=== PATIENT | male | born 2000 | race Caucasian/White ===

== ENCOUNTER 2020-04-22 05:18 | Inpatient (IN) | payer BC, OTHER ==
[2020-04-22 05:59] LABS: Hemoglobin 16.4 g/dL (14.0-18.0); Mean Corpuscular HGB CONC 35.3 g/dL (32.0-36.0); Mean Corpuscular Hemoglobin 31.7 pg (27.0-31.0); Mean Corpuscular Volume 89.7 fL (78.0-98.0); Mean Platelet Volume 8.9 fL (7.4-10.4); Platelet Count 237 thou/uL (130-400); RBC Distribution Width 11.9 % (11.5-14.5); Red Blood Cell (RBC) Count 5.17 mill/uL (4.70-6.10); White Blood Cell (WBC) Count 21.9 thou/uL (4.8-10.8)
[2020-04-22] MEDS ORDERED: Fentanyl 100 MCG/2 ML VIAL ONE (06:02)
[2020-04-22 06:15] LABS: ALT (SGPT) 449 U/L (8-55); AST (SGOT) 519 U/L (5-34); Albumin 4.2 g/dL (3.5-5.0); Alkaline Phosphatase 53 U/L (40-110); Anion Gap 18 mmol/L (10-20); BUN (Urea Nitrogen) 12 mg/dL (8.9-20.6); Bilirubin, Total 0.6 mg/dL (0.2-1.2); Calc. Creatinine Clearance 0 mL/min (70-130); Calcium 8.4 mg/dL (7.8-10.44); Carbon Dioxide 20 mmol/L (22-29); Chloride 104 mmol/L (98-107); Globulin 3.6 g/dL (2.4-3.5); Glucose 130 mg/dL (70-105); Potassium 3.4 mmol/L (3.5-5.1); Protein, Total 7.8 g/dL (6.0-8.3); Sodium 139 mmol/L (136-145)
[2020-04-22 06:16] LABS: Acetaminophen Less than 6.0 mcg/mL (10.0-30.0); Alcohol 100 mg/dL (Less than 10); Salicylate Less than 8.0 mg/dL (15.0-30.0)
[2020-04-22 06:18] LABS: Band 20 % (5-11); Lymphocytes 23 % (21-51); MDiff Complete? YES; Metamyelocyte 1 % (0-0); Monocytes 3 % (0-10); Neutrophil 53 % (42-75)
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
--- NOTE | 2020-04-22 08:19 | CT ---
EXAM: CT angiogram of the neck including 3-D rendering: HISTORY: Left C2 fracture COMPARISON: None FINDINGS: There is adequate opacification of the extracranial arterial tree. No evidence for vertebral artery narrowing or dissection as it passes through the left C2 foramen wit h adjacent fractures. The origins of the right and left carotid and vertebral arteries demonstrate no significant stenosis. Right common, internal, and external carotid arteries:No evidence for significant stenosis or occlusi ve disease. Left common, internal, and external carotid arteries:No significant stenosis or occlusive disease. Right and left vertebral arteries and basilar artery:No significant stenosis or occlusion. Soft tissue neck demonstrates no evidence for significant adenopathy, mass, or abnormal fluid collect ion. All stenosis measurements use Nascet Criteria. IMPRESSION: No evidence for left vertebral artery dissection as it passes through the left C2 foramen with adjace nt fractures. No significant carotid, vertebral, or basilar artery stenosis or occlusive disease or other significa nt acute process.
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
[2020-04-22 08:27] LABS: Magnesium 1.9 mg/dL (1.6-2.6); Phosphorus 4.4 mg/dL (2.3-4.7)
[2020-04-22] MEDS ORDERED: Dextrose 5% in Water 1,000 ML IV PRN (08:34)
[2020-04-22] MEDS ORDERED: traMADol HCl 50 MG TAB PO PRN (08:34)
[2020-04-22] MEDS ORDERED: hydrALAZINE 20 MG/ML VIAL SLOW IVP PRN (08:34)
[2020-04-22] MEDS ORDERED: Ondansetron ODT 4 MG TAB PO PRN (08:34)
[2020-04-22] MEDS ORDERED: Morphine 2 MG/ML VIAL SLOW IVP PRN (08:34)
[2020-04-22] MEDS ORDERED: Dextrose 50% Abboject 50 ML SYRINGE SLOW IVP PRN (08:34)
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
[2020-04-22] MEDS: Sodium Chloride 0.9% 1,000 ML IV SCH ×2 (09:35→17:45)
[2020-04-22] MEDS: Acetaminophen 325 MG TAB PO SCH ×3 (09:35→21:03)
[2020-04-22] MEDS: Famotidine 20 MG TAB PO SCH ×2 (09:36→21:03)
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
[2020-04-22] MEDS ORDERED: Potassium Chloride 20 MEQ TAB PO SCH (11:00)
[2020-04-22] MEDS ORDERED: Iopamidol-370 76% 500 ML 1 ML ONE ×2 (11:40→11:41)
[2020-04-22] MEDS: traMADol HCl 50 MG TAB PO PRN (11:44)
[2020-04-22] MEDS: Cyclobenzaprine 10 MG TAB PO PRN (11:44)
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
[2020-04-22 12:32] LABS: Clarity Hazy (Clear)
[2020-04-22 12:33] LABS: Bilirubin Unable to Interpret (Negative); Glucose, Urine (Dipstick) Unable to Interpret mg/dL (Negative); Ketone, Urine Unable to Interpret mg/dL (Negative); Leukocyte Unable to Interpret Leu/uL (Negative); Nitrite Unable to Interpret (Negative); Protein, Urine (Dipstick) Unable to Interpret mg/dL (Neg-Trace); Specific Gravity, Urine 1.059 (1.002-1.036); Urobilinogen UNABLE TO INTERPRET mg/dL (Less than 2)
[2020-04-22 12:34] LABS: Bacteria/HPF 2+ HPF (None Seen); Blood, Urine Unable to Interpret (Negative); RBC/HPF Greater than 50 HPF (0-3); Squamous Epithelial None Seen HPF (0-3)
[2020-04-22 12:52] LABS: Amphetamine Not Detected (NotDetected); Barbiturates Screen Not Detected (NotDetected); Benzodiazepine Screen Not Detected (NotDetected); Cocaine Metabolite Screen Not Detected (NotDetected); Medtox Control Line Valid? VALID (VALID); Medtox Reader # READER 4; Methadone Not Detected (NotDetected); Methamphetamine Not Detected (NotDetected); Opiate Screen Not Detected (NotDetected); Oxycodone Screen Not Detected (NotDetected); Phencyclidine (PCP) Not Detected (NotDetected); THC/Cannabinoid Screen Not Detected (NotDetected); Tricyclic Screen Not Detected (NotDetected)
[2020-04-22 13:44] VITALS: BMI 29.7
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
[2020-04-22 20:12] LABS: #Lymphocytes 1.7 thou/uL (1.20-3.40); #Monocytes 1.5 thou/uL (0.11-0.59); #Neutrophils 12.1 thou/uL (1.40-6.50); %Basophils 0.1 % (0.0-1.0); %Eosinophils 0.1 % (0.0-10.0); %Lymphocytes 11.2 % (21.0-51.0); %Monocytes 9.6 % (0.0-10.0); Hemoglobin 15.4 g/dL (14.0-18.0); Mean Corpuscular HGB CONC 33.7 g/dL (32.0-36.0); Mean Corpuscular Hemoglobin 31.7 pg (27.0-31.0); Mean Corpuscular Volume 93.9 fL (78.0-98.0); Mean Platelet Volume 8.8 fL (7.4-10.4); Platelet Count 189 thou/uL (130-400); RBC Distribution Width 12.2 % (11.5-14.5); Red Blood Cell (RBC) Count 4.87 mill/uL (4.70-6.10); White Blood Cell (WBC) Count 15.3 thou/uL (4.8-10.8)
[2020-04-22 20:26] LABS: Lactic Acid 2.6 mmol/L (0.5-2.2)
[2020-04-22 20:31] LABS: Anion Gap 17 mmol/L (10-20); BUN (Urea Nitrogen) 14 mg/dL (8.9-20.6); CK (CPK) 2814 U/L (30-200); Calc. Creatinine Clearance 130 mL/min (70-130); Calcium 8.7 mg/dL (7.8-10.44); Carbon Dioxide 22 mmol/L (22-29); Chloride 106 mmol/L (98-107); Glucose 101 mg/dL (70-105); Phosphorus 4.3 mg/dL (2.3-4.7); Potassium 4.5 mmol/L (3.5-5.1); Sodium 140 mmol/L (136-145)
[2020-04-22 22:33] LABS: SARS-CoV-2 MS2 Positive; SARS-CoV-2 N Gene Negative; SARS-CoV-2 S Gene Negative; SARS-CoV-2 by NAA Not Detected (NotDetected); SARS-CoV-2 orf1ab Negative
[2020-04-23] MEDS: traMADol HCl 50 MG TAB PO PRN (00:09)
[2020-04-23] MEDS: Cyclobenzaprine 10 MG TAB PO PRN ×2 (00:09→20:32)
[2020-04-23] MEDS: Sodium Chloride 0.9% 1,000 ML IV SCH ×3 (02:36→21:58)
[2020-04-23] MEDS: Acetaminophen 325 MG TAB PO SCH ×4 (02:43→20:32)
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
[2020-04-23 05:18] LABS: #Lymphocytes 1.3 thou/uL (1.20-3.40); %Basophils 0.1 % (0.0-1.0); %Eosinophils 0.3 % (0.0-10.0); %Lymphocytes 12.8 % (21.0-51.0); %Monocytes 9.3 % (0.0-10.0); %Neutrophils 77.5 % (42.0-75.0); Hemoglobin 13.9 g/dL (14.0-18.0); Mean Corpuscular Hemoglobin 32.2 pg (27.0-31.0); Mean Corpuscular Volume 94.5 fL (78.0-98.0); Platelet Count 140 thou/uL (130-400); RBC Distribution Width 12.1 % (11.5-14.5); Red Blood Cell (RBC) Count 4.31 mill/uL (4.70-6.10); White Blood Cell (WBC) Count 10.3 thou/uL (4.8-10.8)
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
[2020-04-23 06:07] LABS: Anion Gap 12 mmol/L (10-20); BUN (Urea Nitrogen) 14 mg/dL (8.9-20.6); Calc. Creatinine Clearance 151 mL/min (70-130); Carbon Dioxide 23 mmol/L (22-29); Chloride 108 mmol/L (98-107); Potassium 4.3 mmol/L (3.5-5.1); Sodium 139 mmol/L (136-145)
[2020-04-23 06:08] LABS: Calcium 8.4 mg/dL (7.8-10.44); Glucose 106 mg/dL (70-105); Magnesium 1.9 mg/dL (1.6-2.6); Phosphorus 2.9 mg/dL (2.3-4.7)
--- NOTE | 2020-04-23 07:33 | PRG ---
DATE OF SERVICE: 04/23/2020 I saw Yoan Jones in his hospital room this morning. He has his cervical collar on and he is lying flat in bed. He is less intoxicated, more ready to discuss his care this morning. Overnight, I do not see any fevers recorded. Blood pressures have been in the 140s. His heart rate is in the 100s to 110s. On examination, there is no neurological deficit. I spent quite some time talking to Mr. Jones about his C2 hangman fracture. On one side, the hangman fracture goes through the facet complex and there is a modicum of stability there. On the other side, it is directly through the pars. However, the alignment is perfect. He is young and healthy. We may be able to treat this with external cervical orthosis. His mother worries about his reliability wearing it, but he attests to the fact that he will be able to keep it on for two months continuously. There will be a collar for showers that he can exchange when he is horizontal. He would like to avoid surgery if possible and we may be able to do so. Job ID: [id number]
[2020-04-23] MEDS ORDERED: PHOS-NAK 1 PKT PACK PO SCH (08:15)
--- NOTE | 2020-04-23 08:32 | RAD ---
PORTABLE CHEST: Date: 04/23/2020 HISTORY: Pulmonary contusion. COMPARISON: 04/22/2020. FINDINGS/IMPRESSION: The hazy infiltrates in the upper lung norris is less pronounced today. No new infiltrate or consolid ation. No acute interval change. POS: AGW
[2020-04-23] MEDS: Famotidine 20 MG TAB PO SCH ×2 (08:45→20:32)
[2020-04-23] MEDS ORDERED: FLU VACC QS2020-21(6MOS UP)/PF 60 MCG/0.5 ML SYRINGE IM ONE (09:00)
[2020-04-23] MEDS ORDERED: traMADol HCl 50 MG TAB PO PRN (10:14)
[2020-04-23] MEDS ORDERED: Ketorolac Tromethamine 30 MG/ML VIAL IVP SCH (10:15)
[2020-04-23] MEDS: traMADol HCl 50 MG TAB PO SCH ×3 (14:47→23:31)
[2020-04-23] MEDS: Ibuprofen 200 MG TAB PO SCH ×2 (14:47→22:41)
[2020-04-23] MEDS: Folic Acid 1 MG TAB PO SCH (14:47)
[2020-04-23] MEDS: Thiamine 100 MG TAB PO SCH (14:48)
[2020-04-23] MEDS: Multivit, Therapeutic 1 TAB PO SCH (14:48)
[2020-04-23] MEDS: Pregabalin 50 MG CAP PO SCH (20:32)
--- NOTE | 2020-04-24 00:20 | PRG ---
DATE OF SERVICE: SUBJECTIVE: Patient was seen during evening rounds, resting comfortably. The patient's nurse reports that he is leaning more toward conservative treatment with a collar at this time. The patient's urine remains dark. The patient continues to be on maintenance IV fluids normal saline at 120 an hour. The patient is tolerating a regular diet. The patient's pain has been controlled. The patient's acetabular fracture will be managed non-operatively. OBJECTIVE: Patient's vital signs are stable and he remains afebrile. PLAN: Increase activity per Physical and Occupational Therapy. Continue pain control and supportive care. Continue aggressive pulmonary toilet with the use of incentive spirometer every hour while awake. Job ID: [id number]
[2020-04-24] MEDS: Acetaminophen 325 MG TAB PO SCH ×5 (03:28→23:47)
[2020-04-24] MEDS: Sodium Chloride 0.9% 1,000 ML IV SCH (03:37)
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
[2020-04-24] MEDS: traMADol HCl 50 MG TAB PO SCH ×4 (05:51→23:47)
[2020-04-24] MEDS: Ibuprofen 200 MG TAB PO SCH ×3 (05:51→22:35)
[2020-04-24 06:39] LABS: #Basophils 0.1 thou/uL (0.0-0.2); #Eosinphils 0.2 thou/uL (0.0-0.7); #Lymphocytes 1.9 thou/uL (1.20-3.40); #Monocytes 0.8 thou/uL (0.11-0.59); #Neutrophils 7.9 thou/uL (1.40-6.50); %Basophils 0.5 % (0.0-1.0); %Eosinophils 1.9 % (0.0-10.0); %Lymphocytes 17.5 % (21.0-51.0); %Monocytes 7.1 % (0.0-10.0); %Neutrophils 73.1 % (42.0-75.0); Hemoglobin 13.9 g/dL (14.0-18.0); Mean Corpuscular HGB CONC 33.9 g/dL (32.0-36.0); Mean Corpuscular Hemoglobin 31.6 pg (27.0-31.0); Mean Corpuscular Volume 93.1 fL (78.0-98.0); Platelet Count 135 thou/uL (130-400); RBC Distribution Width 11.9 % (11.5-14.5); White Blood Cell (WBC) Count 10.8 thou/uL (4.8-10.8)
[2020-04-24 06:51] LABS: Anion Gap 13 mmol/L (10-20); BUN (Urea Nitrogen) 14 mg/dL (8.9-20.6); CK (CPK) 1291 U/L (30-200); Calc. Creatinine Clearance 171 mL/min (70-130); Calcium 8.6 mg/dL (7.8-10.44); Carbon Dioxide 24 mmol/L (22-29); Chloride 107 mmol/L (98-107); Glucose 73 mg/dL (70-105); Magnesium 1.9 mg/dL (1.6-2.6); Phosphorus 2.9 mg/dL (2.3-4.7); Potassium 4.2 mmol/L (3.5-5.1); Sodium 140 mmol/L (136-145)
--- NOTE | 2020-04-24 07:25 | PRG ---
DATE OF SERVICE: I saw Mr. Jones and his mother in their hospital room this morning. Mr. Jones woke up as I entered the room. He has no complaints, but tells me he decided to go with collar treatment for now and try to avoid surgical intervention. He promises to be diligent about collar use. Among the electronically recorded vital signs, I see no fevers. Blood pressures have been in the 130s to 150s. On examination, Mr. Jones wakes, he moves all the extremities. He is beginning to be more accepting of his injury and tolerant of his care providers. Mr. Jones needs a [place] collar that fits him well. The two collars can be exchanged when he is completely horizontal in bed and his head is immobilized by another person. The back of the collar can be pushed into the bed and removed once the front of the collar has been opened and taken out of the way. The reverse can happen with the second collar. When the [place] collar is in place, he can sit up and go shower, he can dry off, return to bed, assume the horizontal position, and go through the reverse process to put the [place] J collar back on. Our office will arrange x-rays in one week and three weeks after that as well as at the end of the two months. We will make sure that the fracture fragments are not displacing relative to each other. Job ID: [id number] [facility]
[2020-04-24] MEDS: Multivit, Therapeutic 1 TAB PO SCH (08:59)
[2020-04-24] MEDS: Folic Acid 1 MG TAB PO SCH (08:59)
[2020-04-24] MEDS: Thiamine 100 MG TAB PO SCH (08:59)
[2020-04-24] MEDS: Famotidine 20 MG TAB PO SCH ×2 (08:59→20:18)
[2020-04-24] MEDS: Pregabalin 50 MG CAP PO SCH (08:59)
[2020-04-24] MEDS: Gabapentin 100 MG CAP PO SCH ×2 (14:46→20:18)
[2020-04-24] MEDS: Ondansetron PF 4 MG/2 ML Vial IVP PRN (20:22)
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
[2020-04-25] MEDS: Ibuprofen 200 MG TAB PO SCH ×3 (05:22→23:00)
[2020-04-25] MEDS: traMADol HCl 50 MG TAB PO SCH ×3 (05:26→18:12)
[2020-04-25] MEDS: Ondansetron PF 4 MG/2 ML Vial IVP PRN ×2 (06:29→17:55)
[2020-04-25] MEDS ORDERED: Sodium Chloride 0.9% 250 ML 250 ML IVPB SCH (07:00)
[2020-04-25] MEDS ORDERED: Promethazine HCl 25 MG/ML VIAL IM SCH (07:00)
--- NOTE | 2020-04-25 08:03 | PRG ---
DATE OF SERVICE: I saw Yoan Jones in his hospital room this morning. His mother is in the room with him. They do not report any events overnight other than increase in his nausea and vomiting. Overnight, the maximum temperature I see recorded is 98.8 degrees Fahrenheit. Blood pressures have been in the 140s to 160s, which are slightly elevated for a person of his age. Mr. Jones wakes, he moves all extremities well. There is no new neurological deficit. His cervical collar is in place. Before discharge home, Mr. Jones needs to be safe for his activities of daily living and have his nausea controlled. I think this is a medication effect, honestly. He and his mother know to use the [place] collar for showers and the [place] J collar the rest of the day. Collars need to be worn 24 hours a day, 7 days a week for 2 months as the fractures heal. We will arrange followup imaging. Job ID: [id number]
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
[2020-04-25] MEDS: Acetaminophen 325 MG TAB PO SCH ×3 (09:00→20:51)
[2020-04-25] MEDS: Famotidine 20 MG TAB PO SCH ×2 (09:24→20:50)
[2020-04-25] MEDS: Multivit, Therapeutic 1 TAB PO SCH (09:24)
[2020-04-25] MEDS: Gabapentin 100 MG CAP PO SCH ×3 (09:24→20:52)
[2020-04-25] MEDS: Scopolamine 1.5 mg/72 hour Patch TD SCH (09:25)
[2020-04-25] MEDS: Folic Acid 1 MG TAB PO SCH (09:25)
[2020-04-25] MEDS: Thiamine 100 MG TAB PO SCH (09:25)
[2020-04-25 10:34] LABS: #Eosinphils 0.1 thou/uL (0.0-0.7); #Lymphocytes 0.9 thou/uL (1.20-3.40); #Monocytes 0.6 thou/uL (0.11-0.59); #Neutrophils 9.7 thou/uL (1.40-6.50); %Basophils 0.4 % (0.0-1.0); %Eosinophils 0.5 % (0.0-10.0); %Lymphocytes 7.5 % (21.0-51.0); %Monocytes 5.7 % (0.0-10.0); Hemoglobin 14.1 g/dL (14.0-18.0); Mean Corpuscular Hemoglobin 31.2 pg (27.0-31.0); Mean Corpuscular Volume 91.7 fL (78.0-98.0); Mean Platelet Volume 9.4 fL (7.4-10.4); Platelet Count 149 thou/uL (130-400); RBC Distribution Width 11.7 % (11.5-14.5); Red Blood Cell (RBC) Count 4.51 mill/uL (4.70-6.10); White Blood Cell (WBC) Count 11.3 thou/uL (4.8-10.8)
[2020-04-25 11:25] LABS: Anion Gap 17 mmol/L (10-20); BUN (Urea Nitrogen) 15 mg/dL (8.9-20.6); Calc. Creatinine Clearance 98 mL/min (70-130); Carbon Dioxide 23 mmol/L (22-29); Chloride 104 mmol/L (98-107); Glucose 102 mg/dL (70-105); Phosphorus 3.8 mg/dL (2.3-4.7); Potassium 4.7 mmol/L (3.5-5.1); Sodium 139 mmol/L (136-145)
[2020-04-25] MEDS ORDERED: Lactated Ringer's 1,000 ML IV SCH (12:30)
[2020-04-26] MEDS: traMADol HCl 50 MG TAB PO SCH ×5 (00:33→23:55)
[2020-04-26] MEDS: Acetaminophen 325 MG TAB PO SCH ×4 (03:02→20:22)
[2020-04-26] MEDS: Ibuprofen 200 MG TAB PO SCH ×3 (05:09→20:23)
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
[2020-04-26 06:44] LABS: #Basophils 0.1 thou/uL (0.0-0.2); #Eosinphils 0.3 thou/uL (0.0-0.7); #Lymphocytes 1.6 thou/uL (1.20-3.40); #Monocytes 0.8 thou/uL (0.11-0.59); #Neutrophils 6.1 thou/uL (1.40-6.50); %Basophils 0.8 % (0.0-1.0); %Lymphocytes 18.4 % (21.0-51.0); %Neutrophils 68.8 % (42.0-75.0); Hemoglobin 13.5 g/dL (14.0-18.0); Mean Corpuscular HGB CONC 34.4 g/dL (32.0-36.0); Mean Corpuscular Hemoglobin 31.8 pg (27.0-31.0); Mean Corpuscular Volume 92.4 fL (78.0-98.0); Mean Platelet Volume 8.9 fL (7.4-10.4); Platelet Count 142 thou/uL (130-400); RBC Distribution Width 11.8 % (11.5-14.5); Red Blood Cell (RBC) Count 4.26 mill/uL (4.70-6.10); White Blood Cell (WBC) Count 8.8 thou/uL (4.8-10.8)
[2020-04-26 07:10] LABS: Anion Gap 15 mmol/L (10-20); BUN (Urea Nitrogen) 10 mg/dL (8.9-20.6); Calc. Creatinine Clearance 171 mL/min (70-130); Calcium 9.1 mg/dL (7.8-10.44); Carbon Dioxide 25 mmol/L (22-29); Chloride 106 mmol/L (98-107); Glucose 79 mg/dL (70-105); Magnesium 1.8 mg/dL (1.6-2.6); Phosphorus 3.8 mg/dL (2.3-4.7); Potassium 3.9 mmol/L (3.5-5.1); Sodium 142 mmol/L (136-145)
--- NOTE | 2020-04-26 07:25 | PRG ---
DATE OF SERVICE: 04/26/2020 I saw Mr. Jones in his hospital room this morning. His mother is at the bedside. He had a reasonably comfortable night as he is pleased with his progress since yesterday. He walked in the room yesterday with some assistance, but did not get in the hallways. I do not see any fevers recorded yesterday or today. Blood pressures have been high for a 19-year-old in the 140 to 150 range. Mr. Jones wakes, he talks, he moves all his extremities. The collar is well positioned. He does not seem to be in much distress. Our office will arrange a followup x-ray in 2 weeks. Three weeks after that at the end of the 2 months of collar use, we will ensure that the C2 fracture is well aligned. He is to be safe for activities of daily living prior to discharge. Job ID: [id number]
[2020-04-26] MEDS ORDERED: Magnesium Citrate 300 ML BOT PO PRN (09:42)
[2020-04-26] MEDS: Ondansetron PF 4 MG/2 ML Vial IVP PRN (09:49)
[2020-04-26] MEDS: Gabapentin 100 MG CAP PO SCH ×3 (14:09→20:22)
[2020-04-26] MEDS: Famotidine 20 MG TAB PO SCH ×2 (14:10→20:22)
[2020-04-26] MEDS: Multivit, Therapeutic 1 TAB PO SCH (14:10)
[2020-04-26] MEDS: Thiamine 100 MG TAB PO SCH (14:10)
[2020-04-26] MEDS: Folic Acid 1 MG TAB PO SCH (14:10)
[2020-04-26] MEDS: Polyethylene Glycol 3350 17 GM Packet PO SCH (14:11)
[2020-04-26] MEDS: Senokot S 8.6-50 MG TAB PO SCH ×2 (14:12→20:22)
[2020-04-27] MEDS: Acetaminophen 325 MG TAB PO SCH ×5 (05:08→20:26)
[2020-04-27] MEDS: Ibuprofen 200 MG TAB PO SCH ×3 (05:49→20:28)
[2020-04-27] MEDS: traMADol HCl 50 MG TAB PO SCH ×3 (05:50→16:56)
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
[2020-04-27] MEDS: Polyethylene Glycol 3350 17 GM Packet PO SCH (08:50)
[2020-04-27] MEDS: Thiamine 100 MG TAB PO SCH (08:50)
[2020-04-27] MEDS: Famotidine 20 MG TAB PO SCH ×2 (08:50→20:26)
[2020-04-27] MEDS: Senokot S 8.6-50 MG TAB PO SCH ×2 (08:50→20:28)
[2020-04-27] MEDS: Multivit, Therapeutic 1 TAB PO SCH (08:50)
[2020-04-27] MEDS: Folic Acid 1 MG TAB PO SCH (08:50)
[2020-04-27] MEDS: Gabapentin 100 MG CAP PO SCH ×3 (08:50→20:27)
[2020-04-27] MEDS: Enoxaparin Sodium 30 MG/0.3 ML SYRINGE SC SCH ×2 (10:12→20:26)
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
[2020-04-28] MEDS: traMADol HCl 50 MG TAB PO SCH ×3 (00:15→12:15)
[2020-04-28] MEDS: Acetaminophen 325 MG TAB PO SCH ×3 (04:25→15:22)
[2020-04-28] MEDS: Ibuprofen 200 MG TAB PO SCH ×2 (05:51→15:22)
[2020-04-28 09:46] VITALS: TEMP 98.2
[2020-04-28] MEDS: Scopolamine 1.5 mg/72 hour Patch TD SCH (09:46)
[2020-04-28] MEDS: Gabapentin 100 MG CAP PO SCH ×2 (09:47→15:23)
[2020-04-28] MEDS: Enoxaparin Sodium 30 MG/0.3 ML SYRINGE SC SCH (09:47)
[2020-04-28] MEDS: Multivit, Therapeutic 1 TAB PO SCH (09:47)
[2020-04-28] MEDS: Famotidine 20 MG TAB PO SCH (09:47)
[2020-04-28] MEDS: Thiamine 100 MG TAB PO SCH (09:47)
[2020-04-28] MEDS: Senokot S 8.6-50 MG TAB PO SCH (09:47)
[2020-04-28] MEDS: Folic Acid 1 MG TAB PO SCH (09:47)
[2020-04-28] MEDS: Polyethylene Glycol 3350 17 GM Packet PO SCH (09:48)
[2020-04-28 13:30] VITALS: BP 154/90
== END 2020-04-28 17:42 | DRG 964 ==
LOC: ERS 05:18 → SURG A 06:11
PROVIDERS: ADMIT Surgery; ATTEND Surgery
DX: S27.322A Contusion of lung, bilateral, initial encounter (principal); S32.432A Displaced fracture of anterior column [iliopubic] of left acetabulum, initial encounter for closed fracture; S06.0X9A Concussion with loss of consciousness of unspecified duration, initial encounter; S36.029A Unspecified contusion of spleen, initial encounter; S12.190A Other displaced fracture of second cervical vertebra, initial encounter for closed fracture; S32.019A Unspecified fracture of first lumbar vertebra, initial encounter for closed fracture; S32.039A Unspecified fracture of third lumbar vertebra, initial encounter for closed fracture; S32.049A Unspecified fracture of fourth lumbar vertebra, initial encounter for closed fracture; S32.059A Unspecified fracture of fifth lumbar vertebra, initial encounter for closed fracture; S22.32XA Fracture of one rib, left side, initial encounter for closed fracture; S36.112A Contusion of liver, initial encounter; N17.9 Acute kidney failure, unspecified; S37.012A Minor contusion of left kidney, initial encounter; Z20.828 Contact with and (suspected) exposure to other viral communicable diseases; T79.6XXA Traumatic ischemia of muscle, initial encounter; R40.2411 Glasgow coma scale score 13-15, in the field [EMT or ambulance]; F10.129 Alcohol abuse with intoxication, unspecified; Y90.5 Blood alcohol level of 100-119 mg/100 ml; F07.81 Postconcussional syndrome; V89.2XXA Person injured in unspecified motor-vehicle accident, traffic, initial encounter
CPT/HCPCS: 36415; 36416; 70450; 70498; 71045; 71260; 72125; 74177; 80048; 80053; 80306; 80307; 81003; 81015; 82550; 83605; 83735; 84100; 85025; 87635; 90471; 90662; 96374; G0008; G0390; J1650; J1885; J2405; J2550; J3010; J7050; J7620; Q9967; U0003

== ENCOUNTER 2020-05-01 17:15 | Outpatient (CLI) | payer BC ==
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
== END 2020-05-01 17:16 | disposition home or self-care (01) ==
LOC: ULT 17:15
PROVIDERS: ATTEND Student in an Organized Health Care Education/Training Program
DX: T07.XXXA Unspecified multiple injuries, initial encounter (principal)
CPT/HCPCS: 93975

== ENCOUNTER 2020-05-03 17:29 | Emergency (ER) | payer BC ==
[2020-05-03 18:11] LABS: #Basophils 0.1 thou/uL (0.0-0.2); #Eosinphils 0.1 thou/uL (0.0-0.7); #Lymphocytes 2.5 thou/uL (1.20-3.40); #Monocytes 1.2 thou/uL (0.11-0.59); #Neutrophils 8.7 thou/uL (1.40-6.50); %Basophils 0.8 % (0.0-1.0); %Eosinophils 1.2 % (0.0-10.0); %Lymphocytes 19.6 % (21.0-51.0); %Monocytes 9.4 % (0.0-10.0); %Neutrophils 69.1 % (42.0-75.0); Hemoglobin 13.7 g/dL (14.0-18.0); Mean Corpuscular HGB CONC 35.1 g/dL (32.0-36.0); Mean Corpuscular Hemoglobin 31.9 pg (27.0-31.0); Mean Platelet Volume 7.9 fL (7.4-10.4); Platelet Count 313 thou/uL (130-400); RBC Distribution Width 11.9 % (11.5-14.5); White Blood Cell (WBC) Count 12.6 thou/uL (4.8-10.8)
[2020-05-03 18:40] LABS: ALT (SGPT) 116 U/L (8-55); AST (SGOT) 47 U/L (5-34); Albumin 4.2 g/dL (3.5-5.0); Alkaline Phosphatase 74 U/L (40-110); Anion Gap 14 mmol/L (10-20); BUN (Urea Nitrogen) 17 mg/dL (8.9-20.6); Bilirubin, Total 0.5 mg/dL (0.2-1.2); Calc. Creatinine Clearance 0 mL/min (70-130); Calcium 9.4 mg/dL (7.8-10.44); Carbon Dioxide 26 mmol/L (22-29); Chloride 101 mmol/L (98-107); Glucose 93 mg/dL (70-105); Potassium 4.6 mmol/L (3.5-5.1); Protein, Total 8.2 g/dL (6.0-8.3); Sodium 136 mmol/L (136-145)
[2020-05-03 19:16] LABS: Bilirubin Negative (Negative); Blood, Urine 3+ (Negative); Clarity Turbid (Clear); Glucose, Urine (Dipstick) Normal (Negative); Ketone, Urine Negative (Negative); Leukocyte 75 Leu/uL (Negative); Nitrite Negative (Negative); Protein, Urine (Dipstick) 70 mg/dL (Neg-Trace); RBC/HPF Greater than 50 HPF (0-3); Specific Gravity, Urine 1.009 (1.002-1.036); Squamous Epithelial None Seen HPF (0-3); Urobilinogen Normal mg/dL (Less than 2); WBC/HPF 21-50 HPF (0-3)
[2020-05-03 19:23] LABS: Bacteria/HPF 1+ HPF (None Seen); Yeast-Budding None Seen HPF (None Seen)
== END 2020-05-03 21:39 | disposition home or self-care (01) ==
LOC: ERS 17:29
DX: N30.01 Acute cystitis with hematuria (principal); R33.9 Retention of urine, unspecified; S37.019A Minor contusion of unspecified kidney, initial encounter
CPT/HCPCS: 36415; 51798; 81003; 81015; 87086

== ENCOUNTER 2020-07-17 10:58 | Outpatient (CLI) | payer BC, OTHER ==
[2020-07-17 13:06] LABS: Hemoglobin 15.6 g/dL (13.5-17.5); Mean Corpuscular HGB CONC 33.6 g/dL (32.0-36.0); Mean Corpuscular Hemoglobin 29.5 pg (27.0-33.0); Mean Corpuscular Volume 87.7 fl (81.2-95.1); Mean Platelet Volume 11.4 fl (7.4-10.4); Platelet Count 264 10x3/uL (150-450); RBC Distribution Width 11.6 % (11.5-14.5); Red Blood Cell (RBC) Count 5.29 10x6/uL (4.32-5.72); White Blood Cell (WBC) Count 7.5 10x3/uL (3.5-10.5)
[2020-07-17 13:23] LABS: PTT 31.9 sec (22.0-33.0); Prothrombin Time 10.9 sec (9.5-12.1)
[2020-07-18 05:45] LABS: SARS-CoV-2 PCR by NAA Not Detected (NotDetected)
== END 2020-07-17 10:59 | disposition home or self-care (01) ==
LOC: LABBT 10:58
PROVIDERS: ATTEND Neurological Surgery
DX: Z01.812 Encounter for preprocedural laboratory examination (principal); Z20.822 Contact with and (suspected) exposure to COVID-19; S12.15 Other traumatic spondylolisthesis of second cervical vertebra
CPT/HCPCS: 85027; 85610; 85730; 87635; U0003; U0005

== ENCOUNTER 2020-07-20 05:40 | Day surgery (SDC) | payer BC, OTHER ==
[2020-07-19 09:56] VITALS: BMI 28.7
[2020-07-20] MEDS ORDERED: Thrombin 5000 UNITS/5 ML VIAL ONE (06:09)
[2020-07-20] MEDS ORDERED: Midazolam HCl 2 mg/2 ml Vial ONE (06:50)
[2020-07-20] MEDS ORDERED: Fentanyl 250 MCG/5 ML VIAL ONE (06:55)
[2020-07-20] MEDS ORDERED: Dexmedetomidine 200 MCG/2 ML VIAL ONE (06:55)
[2020-07-20] MEDS ORDERED: Fentanyl 100 MCG/2 ML VIAL ONE ×2 (09:13→11:17)
[2020-07-20] MEDS ORDERED: Dexamethasone 20 MG/5 ML VIAL ONE (09:35)
[2020-07-20] MEDS ORDERED: Rocuronium Bromide 10 MG/ML (10ML VIAL) ONE (09:35)
[2020-07-20] MEDS ORDERED: Vecuronium 10 MG VIAL ONE (09:35)
[2020-07-20] MEDS ORDERED: Lidocaine 1% PF 5 ML VIAL ONE ×2 (09:35)
[2020-07-20] MEDS ORDERED: PROPOFOL 200 MG/20 ML VIAL ONE (09:35)
[2020-07-20] MEDS ORDERED: Ondansetron PF 4 MG/2 ML Vial ONE (09:35)
[2020-07-20] MEDS ORDERED: Glycopyrrolate 0.2 MG/ML 5 ML SYRINGE ONE (09:35)
[2020-07-20] MEDS ORDERED: Promethazine HCl 25 MG/ML VIAL IM PRN (11:00)
[2020-07-20] MEDS ORDERED: Acetaminophen/Codeine 30-300mg Tablet PO PRN ×2 (11:00)
[2020-07-20] MEDS ORDERED: diphenhydrAMINE 25 MG CAP PO PRN (11:00)
[2020-07-20] MEDS ORDERED: Scopolamine 1.5 mg/72 hour Patch TD PRN (11:00)
[2020-07-20] MEDS ORDERED: tiZANidine HCl 4 MG TAB PO PRN (11:00)
[2020-07-20] MEDS ORDERED: Sodium Chloride 0.9% 1,000 ML IV SCH (11:00)
[2020-07-20] MEDS ORDERED: Promethazine HCl 12.5 MG SUPP PR PRN (11:00)
[2020-07-20] MEDS ORDERED: traMADol HCl 50 MG TAB PO PRN ×2 (11:00)
[2020-07-20] MEDS ORDERED: Morphine 4 MG/ML VIAL SLOW IVP PRN (11:00)
[2020-07-20] MEDS ORDERED: Morphine 2 MG/ML VIAL SLOW IVP PRN (11:00)
[2020-07-20] MEDS ORDERED: diphenhydrAMINE 50 MG/ML VIAL IVP PRN (11:00)
[2020-07-20] MEDS ORDERED: Acetaminophen 650 MG Suppository PR PRN (11:00)
[2020-07-20] MEDS ORDERED: Acetaminophen 325 MG TAB PO PRN (11:00)
[2020-07-20] MEDS ORDERED: Promethazine 25 MG TAB PO PRN (11:00)
[2020-07-20] MEDS ORDERED: Prochlorperazine 10 MG/2 ML VIAL IM PRN (11:00)
[2020-07-20] MEDS ORDERED: CEFAZOLIN 2 GM in Premix Bag 1 BAG IVPB SCH (14:00)
[2020-07-20] MEDS ORDERED: Acetaminophen/Codeine 30-300mg Tablet ONE (14:08)
[2020-07-21] MEDS ORDERED: Tamsulosin HCl 0.4 MG CAP PO SCH (06:00)
== END 2020-07-20 15:50 | disposition home or self-care (01) ==
LOC: SDC 05:40
PROVIDERS: ATTEND Neurological Surgery
PROC: 0RT30ZZ Resection of Cervical Vertebral Disc, Open Approach (ICD-10-PCS; principal; 2020-07-20)
PROC: 0RG10A0 Fusion of Cervical Vertebral Joint with Interbody Fusion Device, Anterior Approach, Anterior Column, Open Approach (ICD-10-PCS; principal; 2020-07-20)
DX: S12.15 Other traumatic spondylolisthesis of second cervical vertebra (principal); G43.909 Migraine, unspecified, not intractable, without status migrainosus; Z79.899 Other long term (current) drug therapy; V89.2XXA Person injured in unspecified motor-vehicle accident, traffic, initial encounter
CPT/HCPCS: 76000; C1713; C1776; J0690; J1100; J2250; J2405; J2704; J3010; J3490